=== PATIENT | female | born 1965 | race Asian ===

== ENCOUNTER 2017-08-23 06:09 | Day surgery (SDC) | payer OTHER ==
--- NOTE | 2017-08-22 22:13 | PREOPHP ---
DATE OF ADMISSION: 08/23/2017 REASON FOR ADMISSION: A 52-year-old patient is going to be admitted for diagnostic arthroscopy, exa mination under general anesthesia, SLAP repair, Bankart repair, rotator cuff repair of left shoulder . HISTORY OF PRESENT ILLNESS: This 52-year-old patient has been experiencing shoulder pain for quite a while. Conservative treatment resulted in limited benefit to the patient. The patient has reques kim surgical intervention. PAST MEDICAL HISTORY: High cholesterol, hypertension, on thyroid medication, but states she is not taking any it more because she was not given more. REVIEW OF SYSTEMS: Limited to present illness. SOCIAL HISTORY: Nonsmoker, nondrinker. PHYSICAL EXAMINATION: VITAL SIGNS: Height of 5 feet 4 inches, weight 170 pounds. SKIN: Within normal limits. ENT: PERRLA. HEAD AND NECK: Normocephalic. Trachea midline. Bilateral symmetrical carotid pulses. No mass, no bruit, no lymphadenopathy. CARDIOVASCULAR: Normal sinus rhythm. S1, S2 normal. No murmur. No JVD. No peripheral edema. LUNGS: Clear. ABDOMEN: Soft. No organomegaly. No mass. Bowel sounds present. GENITOURINARY AND RECTAL: Not done, not pertinent to this admission. MUSCULOSKELETAL: Cervical spine indicates close normal range of motion with slight tenderness over the sternocleidomastoid and trapezius muscle. Right shoulder seems to be normal. There is tenderne ss over the right lateral epicondyle. The rest of the arm seems to be normal. Left shoulder range of motion is about 80%. There is marked tenderness over the anterior glenohumeral joint. Marked te nderness in the subacromial space. Positive impingement sign, positive Bledsoe test. Spine and bot h lower extremities were normal. DIAGNOSTIC DATA: Radiologic evaluation of the left shoulder: MRI report indicates a torn superior labrum and partial tear of the subscapularis, and the supraspinatus. Joint effusion. DIAGNOSES: Arthrofibrosis of the left shoulder, superior labral anterior posterior lesion, Bankart lesion, rotator cuff tear of left shoulder. Lateral epicondylitis. Resolving carpal tunnel syndrom e. Treatment plan, alternatives, risks and benefits discussed. Patient understands possible complicati ons from surgery such as infection, bleeding, nerve damage, vascular damage, possibility of deep luca ous thrombosis, pulmonary embolism, hypersensitivity, and even . [place] result may not be obtai antony depending on actual findings and also unknown factor or factors. Formal H and P is supposed to be done by the PCP. Dictated By: NEIL SHAFER/ANDRÉS Conf#: [id number] DID#: [id number]
[2017-08-23] VITALS (14 sets, daily range): BP systolic 114–156; BP diastolic 60–87; PULSE 50–79; RESP 11–18; Ht 162.6 cm; Wt 77.8 kg
[~2017-08-23] VITALS: Ht 162.6 cm; Wt 77.8 kg
[2017-08-23] MEDS ORDERED: GLYCOPYRROLATE 0.4 MG INJ ONE (07:31)
[2017-08-23] MEDS ORDERED: CEFAZOLIN 1 GM INJ ONE (07:31)
[2017-08-23] MEDS ORDERED: NEOSTIGMINE 3 MG/3 ML SYRINGE ONE (07:31)
[2017-08-23] MEDS ORDERED: ONDANSETRON 4 MG INJ ONE (07:31)
[2017-08-23] MEDS ORDERED: PROPOFOL 20 ML ONE (07:31)
[2017-08-23] MEDS ORDERED: ROCURONIUM 50 MG INJ ONE (07:31)
[2017-08-23] MEDS ORDERED: MIDAZOLAM 1 MG/ML 2 ML INJ ONE (07:31)
[2017-08-23] MEDS ORDERED: FENTAnyl 50 MCG/ML VIAL ONE (07:31)
[2017-08-23] MEDS ORDERED: DEXAMETHASONE 4 MG/ML 1 ML INJ ONE (07:31)
[2017-08-23] MEDS ORDERED: ROPIVACAINE 0.5 % 30 ML VIAL ONE (07:32)
[2017-08-23] MEDS ORDERED: morphine SULFATE/PF (10 MG/10 ML) INJ ONE ×2 (07:38→07:39)
[2017-08-23] MEDS ORDERED: ATEN50TA PO (07:42)
[2017-08-23] MEDS ORDERED: SERT-165 PO (07:42)
[2017-08-23] MEDS ORDERED: CHOL200078 PO (07:42)
[2017-08-23] MEDS ORDERED: EPINEPHrine 1 MG/ML 30 ML INJ ONE (07:42)
[2017-08-23] MEDS ORDERED: CYAN500T46 PO (07:42)
[2017-08-23] MEDS ORDERED: ATOR20TA38 PO (07:42)
[2017-08-23] MEDS ORDERED: FOLI-49 PO (07:42)
[2017-08-23] MEDS ORDERED: SULI150T39 PO (07:42)
[2017-08-23] MEDS ORDERED: PYRI50TA80 PO (07:42)
[2017-08-23] MEDS ORDERED: LEVO25TA53 PO (07:42)
[2017-08-23] MEDS ORDERED: EPHEDrine SULFATE 50 MG/5 ML SYG IV PRN (09:30)
[2017-08-23] MEDS ORDERED: LABETALOL HCL 20MG INJ IV PRN (09:30)
[2017-08-23] MEDS ORDERED: MIDAZOLAM 1 MG/ML 2 ML INJ IV PRN (09:30)
[2017-08-23] MEDS ORDERED: HYDROmorphONE (0.2 MG/ML) 10ML SYG IV PRN ×3 (09:30)
[2017-08-23] MEDS ORDERED: DIPHENHYDRAMINE 50 MG INJ IV PRN (09:30)
[2017-08-23] MEDS ORDERED: FENTAnyl 50 MCG/ML VIAL IV PRN ×2 (09:30)
[2017-08-23] MEDS ORDERED: ONDANSETRON 4 MG INJ IV PRN (09:30)
[2017-08-23] MEDS ORDERED: hydrALAzine 20 MG INJ IV PRN (09:30)
[2017-08-23] MEDS ORDERED: OXYCODONE/ACETAMINOPHEN (5/325) TAB PO PRN ×2 (09:30)
[2017-08-23] MEDS ORDERED: ALBUTEROL 0.083% (NEB) 2.5 MG/3 ML AMP HHN PRN (09:30)
[2017-08-23] MEDS ORDERED: IPRATROPIUM (NEB) 0.5 MG/2.5 ML AMP HHN PRN (09:30)
[2017-08-23] MEDS ORDERED: MEPERIDINE 25 MG INJ IV PRN (09:30)
[2017-08-23] MEDS ORDERED: TRIMETHOBENZAMIDE 100 MG/ML VIAL IM PRN (09:30)
[2017-08-23] MEDS ORDERED: hydrALAzine 20 MG INJ ONE (09:37)
[2017-08-23] MEDS ORDERED: METOCLOPRAMIDE 10 MG INJ ONE (09:47)
[2017-08-23] MEDS: FENTAnyl 50 MCG/ML VIAL IV PRN ×2 (10:38→10:50)
--- NOTE | 2017-08-23 11:12 | OPR ---
DATE OF OPERATION: PREOPERATIVE DIAGNOSIS: SLAP lesion, Bankart lesion, rotator cuff tear of left shoulder. POSTOPERATIVE DIAGNOSIS: SLAP lesion, Bankart lesion, rotator cuff tear of left shoulder (minimal partial thickness tear of the supraspinatus tendon). PROCEDURE: Diagnostic arthroscopy, examination under general anesthesia, SLAP repair, Bankart repair, acromioplasty of left shoulder. ANESTHESIA: General by Dr. Silveira. BLEEDING: Minimal. COMPLICATIONS: None. OPERATIVE PROCEDURE: The patient was transferred to the operating room and placed on the operative table in supine position. Shoulder block was given by the anesthesiologist and then general anesthesia was induced. Two grams of Ancef was given IV. The patient was put on right decubitus position. Axillary roll applied. Bony areas were padded. Neck was flexed left laterally to prevent brachial plexus traction during the procedure. During these procedures , we used Arthrex shoulder silva to a total of 10 pounds in the subacromial space, to a total of 10 pounds in glenohumeral joint. After regular prep and draping, landmarks were marked. Through a posterior portal, the glenohumeral joint was accessed and anterolateral portal was established and immediately it was noticed that there is a type 1 and type 3 SLAP lesion present with marked shredding of superior labrum and also superior one third of the anterior labrum. There was absence of loose body in the subscapularis recess in glenohumeral joint. Biceps tendon looked itself okay. There was synovitis present which was shrunk by ArthroCare Bovie, trimming of the superior labrum and superior one third of the anterior labrum was done with shaver and Arthrocare Bovie. We stabilized the biceps attachment by PushLock using suture lasso and FiberStick on bleeding surface. A stable fixation was obtained. Also at this time, we again examined the shoulder under anesthesia. There was still anterior laxity, but it was 50% at the beginning, but, however, we decided to go and do capsular plication and used suture lasso and FiberStick and incorporating the posterior part of the labrum and now the shoulder was sitting in its normal position on bleeding surface. The glenohumeral joints showed some fibrillation, except the anterior part of the glenoid fossa which showed grade II minimally, early grade III chondromalacia. The rotator cuff was intact. There was a partial thickness tear, a very small amount, at most 5 , maybe even less than 10% from inside. Shoulder was evacuated of debris with copious amount of saline irrigation and we entered the subacromial space through a lateral portal and shows mild synovitis which was taken care of shaved by Arthrocare Bovie and abrasion in the acromioplasty was done since supraspinatus looked frayed but, however, no tear was found. Subacromial space was irrigated with copious amount of saline irrigation. Portal was closed with skin cely. Ten milligram of Duramorph mixed with 10 mL of injectable saline was injected into the glenohumeral joint and half in subacromial space. Sterile dressing was applied. Shoulder immobilizer was placed on. The patient was put supine and subsequently gurney and was taken to recovery room in good and stable condition following stop of general anesthesia. Dictated By: NEIL SHAFER/ANDRÉS Conf#: [id number] DID#: [id number] CC: ALBERTO PAUL MD;*EndCC* MTDD
== END 2017-08-23 13:40 | disposition home or self-care (01) ==
LOC: SDS 06:09
PROVIDERS: ATTEND Internal Medicine Endocrinology, Diabetes & Metabolism
DX: S43.432A Superior glenoid labrum lesion of left shoulder, initial encounter (principal); S46.012A Strain of muscle(s) and tendon(s) of the rotator cuff of left shoulder, initial encounter; X58.XXXA Exposure to other specified factors, initial encounter; Y93.89 Activity, other specified; Y92.89 Other specified places as the place of occurrence of the external cause; Y99.8 Other external cause status
CPT/HCPCS: C1713; J0171; J0360; J0690; J1100; J2250; J2274; J2405; J2710; J2765; J2795; J3010